=== PATIENT | male | born 1990 | race Caucasian/White ===

== ENCOUNTER 2024-05-05 19:58 | Emergency (ER) | payer OTHER, BC ==
[2024-05-05 20:22] VITALS: BP 132/79; PULSE 72; RESP 16; TEMP 98.9; BMI 32.5
== END 2024-05-05 21:54 | disposition home or self-care (01) ==
LOC: FER 19:58
DX: S39.012A Strain of muscle, fascia and tendon of lower back, initial encounter (principal); S43.401A Unspecified sprain of right shoulder joint, initial encounter; S20.211A Contusion of right front wall of thorax, initial encounter; V49.40XA Driver injured in collision with unspecified motor vehicles in traffic accident, initial encounter
CPT/HCPCS: 71101-TC-RT-FY; 72100-TC-FY; 73030-TC-RT-FY; 99284-25